=== PATIENT | female | born 1965 ===

== ENCOUNTER 2018-02-20 13:41 | Emergency (ER) | payer OTHER ==
--- NOTE | 2018-02-20 14:51 | C.PDOC ---
History Of Present Illness 52 year old female with bipolar disorder presented to the ED today for "feeling cold for one year." The patient states that she has had constant chills and coughing for the past year as well. Denies chest pain, SOB, hemoptysis, abdominal pain, back pain, travel, rash, weakness, dizziness. Time Seen by Provider: 02/20/18 13:48 Chief Complaint (Nursing): Flu-like Symptoms History Per: Patient History/Exam Limitations: no limitations Onset/Duration Of Symptoms: Persistent Current Symptoms Are (Timing): Still Present Severity: Mild Past Medical History Vital Signs: Last Vital Signs Temp 97.6 F 02/20/18 16:20 Pulse 80 02/20/18 16:20 Resp 18 02/20/18 16:20 BP 113/75 02/20/18 16:20 Pulse Ox 99 02/20/18 17:02 - Medical History PMH: Anemia, Anxiety, Back Problems, Depression, Gastritis, Hypercholesterolemia , Migraine, Chronic Pain Surgical History: Cholecystectomy Family History: States: Unknown Family Hx - Social History Hx Tobacco Use: No Hx Alcohol Use: No Hx Substance Use: No - Immunization History Hx Tetanus Toxoid Vaccination: No Hx Influenza Vaccination: No Hx Pneumococcal Vaccination: No Review Of Systems Except As Marked, All Systems Reviewed And Found Negative. Constitutional: Positive for: Chills Respiratory: Positive for: Cough Physical Exam - Physical Exam Appears: Non-toxic, No Acute Distress Skin: Normal Color, Warm, No Rash Head: Atraumatic, Normacephalic Eye(s): bilateral: Normal Inspection, PERRL, EOMI Oral Mucosa: Moist Throat: No Erythema, No Exudate Neck: Normal ROM, Supple Chest: Symmetrical, No Tenderness Cardiovascular: Rhythm Regular, No Friction Rub, No Murmur Respiratory: Normal Breath Sounds, No Rales, No Rhonchi, No Wheezing Gastrointestinal/Abdominal: Normal Exam, Soft, No Tenderness Back: Normal Inspection, No CVA Tenderness Extremity: Normal ROM, No Swelling Neurological/Psych: Oriented x3, Normal Speech, Normal Motor Gait: Steady ED Course And Treatment - Laboratory Results Result Diagrams: 02/20/18 15:04 02/20/18 15:04 O2 Sat by Pulse Oximetry: 99 (RA) Pulse Ox Interpretation: Normal Medical Decision Making Medical Decision Making: Plan: --CMP --TSH --CBC --HCG --Urinalysis On re-exam, the patient reports improvement of symptoms. Patient is sleeping the bed comfortably. Lungs are CTA, HEart is RRR. abdomen is soft, non-tender and the patient is tolerating Po well. Ambulatory in the ED with steady gait. Follow up with the medical doctor within 1-2 days. Return if worsened. Disposition - Disposition Referrals: Manas Wilhelm MD [Family Provider] - Disposition: HOME/ ROUTINE Disposition Time: 16:58 Condition: GOOD Additional Instructions: Follow up with the medical doctor within 1-2 days. Return if worsened. 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 - Scribe Statement The provider has reviewed the documentation as recorded by the Scribe Yue Mascorro All medical record entries made by the Scribe were at my direction and personally dictated by me. I have reviewed the chart and agree that the record accurately reflects my personal performance of the history, physical exam, medical decision making, and the department course for this patient. I have also personally directed, reviewed, and agree with the discharge instructions and disposition.
[2018-02-20 15:07] LABS: BASO % 0.5 % (0.0-2.0); EOS % 0.5 % (0.0-4.0); HEMOGLOBIN 14.3 g/dL (11.0-16.0); LYMPH # 1.8 K/uL (1.0-4.3); LYMPH % 19.3 % (20.0-40.0); MEAN CELL VOLUME 89.1 fL (81.0-99.0); MEAN CORPUSCULAR HEMOGLOBIN 30.7 pg (27.0-31.0); MEAN CORPUSCULAR HGB CONC 34.4 g/dL (33.0-37.0); MEAN PLATELET VOLUME 8.8 fL (7.2-11.7); MONO # 0.4 K/uL (0.0-0.8); MONO % 4.7 % (0.0-10.0); NEUT # 6.9 K/uL (1.8-7.0); RBC 4.66 Mil/uL (3.80-5.20); RED CELL DISTRIBUTION WIDTH 13.5 % (11.5-14.5); WHITE BLOOD COUNT 9.3 K/uL (4.8-10.8)
[2018-02-20 15:11] LABS: HCG,QUALITATIVE URINE NEGATIVE (NEGATIVE)
[2018-02-20 15:12] LABS: SQUAMOUS EPITHIAL 2 /hpf (0-5); URINE BILIRUBIN NEGATIVE (NEGATIVE); URINE BLOOD NEGATIVE (NEGATIVE); URINE CLARITY Clear (Clear); URINE COLOR Colorless (YELLOW); URINE GLUCOSE (UA) NORMAL (Normal); URINE LEUKOCYTE ESTERASE TRACE Leu/uL (Negative); URINE PROTEIN NEGATIVE (NEGATIVE); URINE UROBILINOGEN NORMAL mg/dL (0.2-1.0)
[2018-02-20 15:20] LABS: ALB/GLOB RATIO 1.1 (1.0-2.1); ALBUMIN 4.3 g/dL (3.5-5.0); ALT/SGPT 66 U/L (9-52); AST/SGOT 35 U/L (14-36); BLOOD UREA NITROGEN 11 mg/dL (7-17); CALCIUM 9.4 mg/dl (8.6-10.4); GFR AFRICAN-AMERICAN > 60; GFR NON-AFRICAN AMERICAN > 60
[2018-02-20 16:20] VITALS: BP 113/75; PULSE 80; RESP 18; TEMP 97.6
[2018-02-20 16:59] VITALS: O2SAT 99
== END 2018-02-20 17:16 | disposition home or self-care (01) ==
LOC: C.ER 13:41
DX: T69.8XXA Other specified effects of reduced temperature, initial encounter (principal)

== ENCOUNTER 2018-09-24 11:16 | Emergency (ER) | payer MEDICAID, OTHER ==
[2018-09-24 11:38] VITALS: BMI 22.6
--- NOTE | 2018-09-24 11:52 | C.PDOC ---
History Of Present Illness 53 years old female presents to ED for complaints of feeling cold, headache and upper abdominal pain that began 3 days ago. Denies fever, chills, or any other physical complaints. Time Seen by Provider: 09/24/18 11:20 Chief Complaint (Nursing): Medical Clearance History Per: Patient History/Exam Limitations: no limitations Onset/Duration Of Symptoms: Hrs Current Symptoms Are (Timing): Still Present Recent travel outside of the [place]: No Past Medical History Reviewed: Historical Data, Nursing Documentation, Vital Signs Vital Signs: Last Vital Signs Temp 98.7 F 09/24/18 11:21 Pulse 100 H 09/24/18 11:21 Resp 18 09/24/18 11:21 BP 122/85 09/24/18 11:21 Pulse Ox 98 09/24/18 11:21 - Medical History PMH: Anemia, Anxiety, Back Problems, Depression, Gastritis, Hypercholesterolemia, Migraine, Chronic Pain Surgical History: Cholecystectomy Family History: States: Unknown Family Hx - Social History Hx Tobacco Use: No Hx Alcohol Use: No Hx Substance Use: No - Immunization History Hx Tetanus Toxoid Vaccination: No Hx Influenza Vaccination: No Hx Pneumococcal Vaccination: No Review Of Systems Constitutional: Positive for: Other (Cold symptoms ). Negative for: Fever, Chills Gastrointestinal: Positive for: Abdominal Pain (Upper Abdomen ). Negative for: Nausea, Vomiting, Diarrhea Skin: Negative for: Rash Neurological: Positive for: Headache. Negative for: Weakness, Numbness, Dizziness Physical Exam - Physical Exam Appears: Well, Non-toxic, No Acute Distress Skin: Normal Color, Warm, Dry, No Rash Head: Atraumatic, Normacephalic Eye(s): bilateral: Normal Inspection, PERRL, EOMI Ear(s): Bilateral: Normal Nose: Normal Oral Mucosa: Moist Tongue: Normal Appearing Lips: Normal Appearing Gingiva: Normal Appearing Throat: Normal, No Erythema, No Exudate, No Drooling Neck: Normal ROM, Supple Chest: Symmetrical, No Tenderness Cardiovascular: Rhythm Regular, No Murmur Respiratory: Normal Breath Sounds, No Rales, No Rhonchi, No Wheezing Gastrointestinal/Abdominal: Bowel Sounds (Active ), Soft, Tenderness (Epigastric ), No Distention, No Guarding, No Rebound Extremity: Normal ROM Extremity: Bilateral: Atraumatic, Normal Color And Temperature, Normal ROM Pulses: Left Radial: Normal, Right Radial: Normal Neurological/Psych: Oriented x3, Normal Speech Gait: Steady ED Course And Treatment - Laboratory Results Result Diagrams: 09/24/18 12:29 09/24/18 12:29 Lab Interpretation: Normal ECG: Interpreted By Me ECG Rhythm: Sinus Rhythm Rate From EC O2 Sat by Pulse Oximetry: 98 (RA) Pulse Ox Interpretation: Normal - Radiology CXR: Interpreted by Me CXR Interpretation: Yes: No Acute Disease - Other Rad CXR X-Ray: Viewed By Me, Read By Radiologist Interpretation: Date of service: 09/24/2018. HISTORY: SOB. COMPARISON: Chest radiographs 04/16/2016. TECHNIQUE: Chest PA and lateral. FINDINGS: LUNGS: No active pulmonary disease. PLEURA: No significant pleural effusion identified. No pneumothorax apparent. CARDIOVASCULAR: No aortic atherosclerotic calcification present. Normal cardiac size. No pulmonary vascular congestion. OSSEOUS STRUCTURES: No significant abnormalities. VISUALIZED UPPER ABDOMEN: Normal. OTHER FINDINGS: None. IMPRESSION: No interval acute cardiopulmonary disease appreciated. Progress Note: Treated with IVF NSS and pepcid. On re-evaluation abdomen soft non-tender in no distress. Discharged in stable condition Medical Decision Making Medical Decision Making: Plan: * IV Fluids * Pepcid * EKG * Blood work * CXR * Urinalysis Disposition Counseled Patient/Family Regarding: Studies Performed, Diagnosis, Need For Followup - Disposition Referrals: Manas Wilhelm MD [Staff Provider] - Disposition: HOME/ ROUTINE Disposition Time: 13:00 Condition: STABLE Additional Instructions: Follow up with your PMD for further evaluation Return to ED if any increase symptoms Instructions: Generalized Weakness, Weakness (ED) Forms: [employer] (Saudi Arabian) Print Language: THAI - POA Present On Arrival: None - Clinical Impression Clinical Impression: Weakness - 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 - Scribe Statement The provider has reviewed the documentation as recorded by the Heather Barton All medical record entries made by the Jiaibtami were at my direction and personally dictated by me. I have reviewed the chart and agree that the record accurately reflects my personal performance of the history, physical exam, medical decision making, and the department course for this patient. I have also personally directed, reviewed, and agree with the discharge instructions and disposition.
[2018-09-24] MEDS ORDERED: Sodium Chloride 0.9% 1,000 ML IV ONE (12:15)
[2018-09-24] MEDS ORDERED: Sodium Chloride 0.9% 1,000 ML ONE (12:23)
[2018-09-24 12:32] LABS: BASO # 0.1 K/uL (0.0-0.2); BASO % 0.7 % (0.0-2.0); EOS % 0.4 % (0.0-4.0); HEMOGLOBIN 14.5 g/dL (11.0-16.0); LYMPH # 1.8 K/uL (1.0-4.3); LYMPH % 24.3 % (20.0-40.0); MEAN CELL VOLUME 89.6 fL (81.0-99.0); MEAN CORPUSCULAR HEMOGLOBIN 30.4 pg (27.0-31.0); MEAN PLATELET VOLUME 8.7 fL (7.2-11.7); MONO # 0.4 K/uL (0.0-0.8); MONO % 5.7 % (0.0-10.0); NEUT % 68.9 % (50.0-75.0); NRBC % 0.1 % (0.0-2.0); RBC 4.75 Mil/uL (3.80-5.20); RED CELL DISTRIBUTION WIDTH 13.2 % (11.5-14.5); WHITE BLOOD COUNT 7.3 K/uL (4.8-10.8)
[2018-09-24 12:45] LABS: ALB/GLOB RATIO 1.3 (1.0-2.1); ALBUMIN 4.7 g/dL (3.5-5.0); ALT/SGPT 43 U/L (9-52); AST/SGOT 24 U/L (14-36); BLOOD UREA NITROGEN 11 mg/dL (7-17); CALCIUM 9.8 mg/dl (8.6-10.4); GFR NON-AFRICAN AMERICAN > 60; LIPASE 46 U/L (23-300)
[2018-09-24 13:58] LABS: SQUAMOUS EPITHIAL 3 /hpf (0-5); URINE BACTERIA RARE (<OCC); URINE BILIRUBIN NEGATIVE (NEGATIVE); URINE BLOOD NEGATIVE (NEGATIVE); URINE CLARITY Clear (Clear); URINE COLOR Straw (YELLOW); URINE GLUCOSE (UA) NORMAL (Normal); URINE LEUKOCYTE ESTERASE TRACE Leu/uL (Negative); URINE PROTEIN NEGATIVE (NEGATIVE); URINE UROBILINOGEN NORMAL mg/dL (0.2-1.0)
[2018-09-24 14:43] VITALS: BP 120/78; PULSE 82; RESP 16; TEMP 98.5
--- NOTE | 2018-09-24 15:32 | RAD ---
Date of service: 09/24/2018 HISTORY: SOB COMPARISON: Chest radiographs 04/16/2016. TECHNIQUE: Chest PA and lateral FINDINGS: LUNGS: No active pulmonary disease. PLEURA: No significant pleural effusion identified. No pneumothorax apparent. CARDIOVASCULAR: No aortic atherosclerotic calcification present. Normal cardiac size. No pulmonary vascular congestion. OSSEOUS STRUCTURES: No significant abnormalities. VISUALIZED UPPER ABDOMEN: Normal. OTHER FINDINGS: None. IMPRESSION: No interval acute cardiopulmonary disease appreciated.
[2018-09-24 16:23] VITALS: O2SAT 98
--- NOTE | 2018-09-27 15:22 | CARD ---
APPROVED REPORT Date of service: 09/24/2018 EKG Measurement Heart [id number] <Conclusion> Normal sinus rhythm Normal ECG
== END 2018-09-24 14:42 | disposition home or self-care (01) ==
LOC: C.ER 11:16
DX: R53.1 Weakness (principal); D64.9 Anemia, unspecified; E78.00 Pure hypercholesterolemia, unspecified

== ENCOUNTER 2018-11-05 15:34 | Emergency (ER) | payer MEDICAID ==
[2018-11-05 15:35] VITALS: BMI 22.6
[2018-11-05] MEDS ORDERED: Sodium Chloride 0.9% 1,000 ML IV ONE (16:26)
--- NOTE | 2018-11-05 16:26 | C.PDOC ---
History Of Present Illness 53 y/o female pt with hx of depression presents to the ER c/o abdominal pain for a few weeks. Associated sx includes nausea, diarrhea and chills. Pt denies fever. <BriiMiguel - Last Filed: 11/05/18 16:28> History Per: Patient History/Exam Limitations: no limitations Onset/Duration Of Symptoms: Days Current Symptoms Are (Timing): Still Present Location Of Pain/Discomfort: Diffuse <Miguel Teresa - Last Filed: 11/05/18 16:28> <Adriana Morales - Last Filed: 11/05/18 20:29> Time Seen by Provider: 11/05/18 16:04 Chief Complaint (Nursing): Abdominal Pain Past Medical History Reviewed: Historical Data, Nursing Documentation, Vital Signs Vital Signs: Last Vital Signs Temp 98.1 F 11/05/18 15:40 Pulse 83 11/05/18 15:40 Resp 20 11/05/18 15:40 BP 118/80 11/05/18 15:40 Pulse Ox 95 11/05/18 15:40 - Medical History PMH: Anemia, Anxiety, Back Problems, Depression, Gastritis, Hypercholesterolemia, Migraine, Chronic Pain Surgical History: Cholecystectomy Family History: States: Unknown Family Hx - Social History Hx Tobacco Use: No Hx Alcohol Use: No Hx Substance Use: No - Immunization History Hx Tetanus Toxoid Vaccination: No Hx Influenza Vaccination: No Hx Pneumococcal Vaccination: No <BriiMiguel - Last Filed: 11/05/18 16:28> Vital Signs: Last Vital Signs Temp 97.9 F 11/05/18 18:48 Pulse 90 11/05/18 18:48 Resp 18 11/05/18 18:48 BP 113/79 11/05/18 18:48 Pulse Ox 100 11/05/18 18:48 <Adriana Morales - Last Filed: 11/05/18 20:29> Review Of Systems Except As Marked, All Systems Reviewed And Found Negative. Constitutional: Positive for: Chills. Negative for: Fever Gastrointestinal: Positive for: Nausea, Abdominal Pain, Diarrhea <Miguel Teresa - Last Filed: 11/05/18 16:28> Physical Exam - Physical Exam Appears: Non-toxic, No Acute Distress Skin: Warm, Dry Head: Normacephalic Eye(s): bilateral: Normal Inspection, EOMI Oral Mucosa: Moist Chest: Symmetrical Cardiovascular: Rhythm Regular Respiratory: Normal Breath Sounds Gastrointestinal/Abdominal: Soft, Tenderness (mild) Extremity: Normal ROM (x4) Neurological/Psych: Oriented x3, Normal Speech <Miguel Teresa - Last Filed: 11/05/18 16:28> ED Course And Treatment O2 Sat by Pulse Oximetry: 95 (RA) Pulse Ox Interpretation: Normal <BriiMiguel edmond - Last Filed: 11/05/18 16:28> - Laboratory Results Result Diagrams: 11/05/18 16:55 11/05/18 16:55 - CT Scan/US CT Abd/Pel Other Rad Studies (CT/US): Read By Radiologist, Radiology Report Reviewed CT/US Interpretation: FINDINGS: LUNG BASES: The lung bases appear clear. No pleural effusions are seen. LIVER: Unremarkable. GALLBLADDER AND BILE DUCTS: The gallbladder has been surgically removed. PANCREAS: Unremarkable. SPLEEN: Unremarkable. ADRENAL GLANDS: Unremarkable. KIDNEYS, URETERS, AND BLADDER: The kidneys appear within normal limits. There is no hydronephrosis or hydroureter. No urinary calculi are seen. STOMACH AND BOWEL: Unremarkable appearance of the stomach and bowel. No evidence of bowel obstruction. No evidence suggesting enteritis or colitis. APPENDIX: No evidence of acute appendicitis on CT examination. PERITONEUM: No free fluid. No free air. LYMPH NODES: No lymphadenopathy is evident. VASCULATURE: No evidence of abdominal aortic aneurysm. BONES: No aggressive appearing osseous lesion. No acute osseous pathology evident. IMPRESSION: Status post cholecystectomy. No suspicious mass or lymphadenopathy or free fluid collection within the abdomen and pelvis. <Adriana Morales - Last Filed: 11/05/18 20:29> Medical Decision Making Medical Decision Making: Impression: abdominal pain Plans: -- CT scan abdomen and plevis -- chem labs -- blood work -- IV fluids -- UA <Brii,Miguel - Last Filed: 11/05/18 16:28> Medical Decision Makin- CT results reviewed and discussed with patient. Stable to discharge home. Rx written for cipro for UTI and ibuprofen for pain. Patient advised to follow up with PMD or return to the ED for any new or worsening symptoms. <Adriana Morales - Last Filed: 11/05/18 20:29> Disposition <Miguel Teresa - Last Filed: 11/05/18 16:28> - Disposition Disposition Time: 20:25 <Adriana Morales - Last Filed: 11/05/18 20:29> - Disposition Disposition: HOME/ ROUTINE Condition: STABLE Additional Instructions: MARIO SMITH, thank you for letting us take care of you today. Your provider was Adriana Morales MD and you were treated for ABD VANNA. The emergency medical care you received today was directed at your acute symptoms. If you were prescribed any medication, please fill it and take as directed. It may take se veral days for your symptoms to resolve. Return to the Emergency Department if your symptoms worsen, do not improve, or if you have any other problems. Please contact your doctor or call one of the physicians/clinics you have been referred to that are listed on the Patient Visit Information form that is included in your discharge packet. Bring any paperwork you were given at discharge with you along with any medications you are taking to your follow up visit. Our treatment cannot replace ongoing medical care by a primary care provider outside of the emergency department. Thank you for allowing the [facility] team to be part of your care today. If you had an X-Ray or CT scan: A Radiologist will review the ED reading if any change in treatment is needed we will contact you. If you had a blood, urine, or wound culture: It will take several days for the results, if any change in treatment is needed we will contact you. If you had an STI test: It will take 48 hours for the results. Please call after 1 week if you have not heard back. Prescriptions: Ciprofloxacin HCl [Cipro] 250 mg PO Q12 5 Days #10 tablet Ibuprofen [Motrin] 600 mg PO Q6 #20 tab Instructions: Urinary Tract Infection, Adult (DC) Forms: [employer] (Spanish) Print Language: BENGALI - Clinical Impression Clinical Impression: Abdominal pain, Urinary tract infection - Scribe Statement The provider has reviewed the documentation as recorded by the Jiaibtami Wiggins Do Provider Attestation: All medical record entries made by the Scribe were at my direction and personally dictated by me. I have reviewed the chart and agree that the record accurately reflects my personal performance of the history, physical exam, medical decision making, and the department course for this patient. I have also personally directed, reviewed, and agree with the discharge instructions and disposition. <Miguel Teresa - Last Filed: 11/05/18 16:28>
[2018-11-05] MEDS ORDERED: Sodium Chloride 0.9% 1,000 ML ONE (16:43)
[2018-11-05] MEDS ORDERED: Iohexol 240 (50 ml) ONE (16:43)
[2018-11-05 17:01] LABS: BASO % 0.7 % (0.0-2.0); EOS % 0.5 % (0.0-4.0); HEMOGLOBIN 15.4 g/dL (11.0-16.0); LYMPH # 2.3 K/uL (1.0-4.3); LYMPH % 32.2 % (20.0-40.0); MEAN CELL VOLUME 91.5 fL (81.0-99.0); MEAN CORPUSCULAR HEMOGLOBIN 30.2 pg (27.0-31.0); MEAN CORPUSCULAR HGB CONC 33.1 g/dL (33.0-37.0); MEAN PLATELET VOLUME 9.2 fL (7.2-11.7); MONO # 0.5 K/uL (0.0-0.8); MONO % 7.3 % (0.0-10.0); NEUT # 4.3 K/uL (1.8-7.0); NEUT % 59.3 % (50.0-75.0); RBC 5.1 Mil/uL (3.80-5.20); RED CELL DISTRIBUTION WIDTH 13.2 % (11.5-14.5); WHITE BLOOD COUNT 7.3 K/uL (4.8-10.8)
[2018-11-05 17:12] LABS: SQUAMOUS EPITHIAL 50 /hpf (0-5); URINE BACTERIA OCC (<OCC); URINE BILIRUBIN NEGATIVE (NEGATIVE); URINE BLOOD NEGATIVE (NEGATIVE); URINE CLARITY Hazy (Clear); URINE COLOR Amber (YELLOW); URINE GLUCOSE (UA) NORMAL (Normal); URINE LEUKOCYTE ESTERASE 2+ Leu/uL (Negative); URINE PROTEIN 1+ mg/dL (NEGATIVE); URINE UROBILINOGEN NORMAL mg/dL (0.2-1.0)
[2018-11-05 17:14] LABS: ALB/GLOB RATIO 1.4 (1.0-2.1); ALBUMIN 4.7 g/dL (3.5-5.0); ALT/SGPT 62 U/L (9-52); AST/SGOT 40 U/L (14-36); BLOOD UREA NITROGEN 11 mg/dL (7-17); CALCIUM 9.8 mg/dl (8.6-10.4); GFR NON-AFRICAN AMERICAN > 60; LIPASE 50 U/L (23-300)
[2018-11-05] MEDS ORDERED: Ciprofloxacin 400mg/200ml D5W 400 MG/200 ML BAG IVPB ONE ×2 (17:15→17:44)
[2018-11-05 18:48] VITALS: RESP 18
[2018-11-05] MEDS ORDERED: Iodixanol 320 MG/ML 100 ML BOTTLE IV ONE (19:35)
[2018-11-05 20:33] VITALS: BP 135/89; PULSE 102; TEMP 98.1; O2SAT 97
--- NOTE | 2018-11-06 10:59 | CT ---
Date of service: 11/05/2018 PROCEDURE: CT Abdomen and Pelvis with contrast HISTORY: abd pain COMPARISON: Comparison is made with the previous ultrasound of abdomen dated 01/20/2018 TECHNIQUE: Contrast dose: 100 mL of Visipaque 320 intravenously. Axial and reformatted coronal and sagittal CT images of the abdomen and pelvis were obtained after IV and oral contrast administration. Radiation dose: Total exam DLP = 249.69 mGy-cm. This CT exam was performed using one or more of the following dose reduction techniques: Automated exposure control, adjustment of the mA and/or kV according to patient size, and/or use of iterative reconstruction technique. FINDINGS: LOWER THORAX: No evidence of acute pathology at the lung bases. LIVER: Unremarkable. No gross lesion or ductal dilatation. GALLBLADDER AND BILE DUCTS: Status post cholecystectomy. The common bile duct is slightly prominent in size likely due to prior cholecystectomy. PANCREAS: Unremarkable. No gross lesion or ductal dilatation. SPLEEN: Unremarkable. ADRENALS: Unremarkable. No mass. KIDNEYS AND URETERS: Unremarkable. No hydronephrosis. No solid mass. VASCULATURE: Unremarkable. No aortic aneurysm. No aortic atherosclerotic calcification or mural plaque present. BOWEL: Mild diffuse gastric wall thickening noted more prominent distally may be due to mild gastritis. No evidence of high-grade bowel obstruction. APPENDIX: Normal appendix. PERITONEUM: Unremarkable. No free fluid. No free air. LYMPH NODES: Unremarkable. No enlarged lymph nodes. BLADDER: Unremarkable. REPRODUCTIVE: The uterus is prominent in size. There is fibroid noted at the right uterine wall. BONES: No acute fracture. OTHER FINDINGS: None. IMPRESSION: Status post cholecystectomy. Mild gastric wall thickening suspicious for gastritis. No evidence of acute pathology in the abdomen and pelvis. Preliminary report was submitted by [facility] contains concordant findings.
== END 2018-11-05 20:35 | disposition home or self-care (01) ==
LOC: C.ER 15:34
DX: N39.0 Urinary tract infection, site not specified (principal); R10.9 Unspecified abdominal pain; E78.00 Pure hypercholesterolemia, unspecified; Z90.49 Acquired absence of other specified parts of digestive tract
CPT/HCPCS: 74177; 80053; 81001; 83690; 85025; 87086; 96361; 96365; 99285; J0744; J7030; Q9967

== ENCOUNTER 2018-11-11 12:14 | Emergency (ER) | payer MEDICAID ==
[2018-11-11 12:15] VITALS: BMI 22.6
[2018-11-11 13:00] VITALS: O2SAT 96
--- NOTE | 2018-11-11 13:06 | C.PDOC ---
History Of Present Illness 53 y/o female presents to the ER complaining of abdominal pain which has been present for the past 8 days. On further questioning, patient states she has had this pain for months and it has become more severe in the past month. Patient states that she has nausea. Patient is also complaining of subjective fever and chills. She was evaluated for the same complaints in [facility] 6 days ago. At the time, she had CT which showed gastritis and she was discharged on abx. She had a urine culture which showed no growth. Denies having vomiting,dysuria, hematuria, vaginal bleeding, and rectal bleeding. Patient states saw primary care 2 days ago. 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 Time Seen by Provider: 11/11/18 12:26 Chief Complaint (Nursing): Abdominal Pain History Per: Patient History/Exam Limitations: no limitations Onset/Duration Of Symptoms: Days Current Symptoms Are (Timing): Still Present Severity: Moderate Past Medical History Reviewed: Historical Data, Nursing Documentation, Vital Signs Vital Signs: Last Vital Signs Temp 98.3 F 11/11/18 12:25 Pulse 105 H 11/11/18 13:00 Resp 19 11/11/18 13:00 BP 120/80 11/11/18 13:00 Pulse Ox 96 11/11/18 13:00 - Medical History PMH: Anemia, Anxiety, Back Problems, Depression, Gastritis, Hypercholesterolemia, Migraine, Chronic Pain Surgical History: Cholecystectomy Family History: States: No Known Family Hx - Social History Hx Tobacco Use: No Hx Alcohol Use: No Hx Substance Use: No - Immunization History Hx Tetanus Toxoid Vaccination: No Hx Influenza Vaccination: No Hx Pneumococcal Vaccination: No Review Of Systems Except As Marked, All Systems Reviewed And Found Negative. Constitutional: Positive for: Fever, Chills Gastrointestinal: Positive for: Nausea, Abdominal Pain. Negative for: Vomiting Genitourinary: Negative for: Dysuria, Hematuria, Vaginal Discharge, Vaginal Bleeding Physical Exam - Physical Exam Additional Physical Exam Comments: Constitutional: No acute distress. Head: Normocephalic. Atraumatic. Eyes: PERRL. ENT: Moist mucous membranes. Neck: Supple. Cardiovascular: Tachycardic.Radial pulse 2+ bilaterally. Chest: No tenderness. Respiratory: Clear to auscultation bilaterally. GI: Soft.Epigastric Tenderness. Nondistended.No Guarding. No Rebound. Back: No CVA tenderness. Musculoskeletal: No tenderness or swelling of extremities.z Skin: No rash. Neurologic: Alert, no focal deficit. ED Course And Treatment O2 Sat by Pulse Oximetry: 96 (RA) Pulse Ox Interpretation: Normal Medical Decision Making Medical Decision Making: Discussed with patient at length that for her chronic pain, she requires further evaluation with primary care in office setting but given negative work up for these symptoms in ED 6 days ago and no change in symptoms since then, no indication for further evaluation currently. I encouraged patient to return to ED for worsening pain, fever, vomiting, or any other concern for emergent disease. Otherwise, I stressed the importance of outpatient follow up given that patient has had this pain for an extensive period of time but has not been given a diagnosis. Disposition - Disposition Referrals: Munir Edmondson MD [Staff Provider] - Disposition: HOME/ ROUTINE Disposition Time: 14:14 Condition: STABLE Prescriptions: Ibuprofen [Motrin] 1 tab PO Q6 #30 tab Ondansetron ODT [Zofran ODT] 4 mg PO Q8 #12 odt Instructions: Acute Abdomen (Belly Pain), Adult (DC) Forms: [employer] (Azeri) - Clinical Impression Clinical Impression: Abdominal pain - Scribe Statement The provider has reviewed the documentation as recorded by the Jiaibe Vidal Gerber Provider Attestation: All medical record entries made by the Jiaibe were at my direction and personally dictated by me. I have reviewed the chart and agree that the record accurately reflects my personal performance of the history, physical exam, medical decision making, and the department course for this patient. I have also personally directed, reviewed, and agree with the discharge instructions and disposition.
[2018-11-11 14:34] VITALS: BP 126/82; PULSE 94; RESP 16; TEMP 98.5
== END 2018-11-11 14:42 | disposition home or self-care (01) ==
LOC: C.ER 12:14
DX: R10.13 Epigastric pain (principal)

== ENCOUNTER 2019-01-25 07:04 | Day surgery (SDC) | payer MEDICAID ==
[2019-01-25] MEDS ORDERED: Lactated Ringer's 500 ML IV SCH (07:45)
[2019-01-25] MEDS ORDERED: Lactated Ringer's 1,000 ML IV ONE (08:48)
[2019-01-25] MEDS ORDERED: Propofol 10 mg/ml Inj (20 ML) ONE (08:49)
[2019-01-25 10:09] LABS: HEMOGLOBIN 14.4 g/dL (11.0-16.0); MEAN CELL VOLUME 92.8 fL (81.0-99.0); MEAN CORPUSCULAR HEMOGLOBIN 30.8 pg (27.0-31.0); MEAN CORPUSCULAR HGB CONC 33.2 g/dL (33.0-37.0); MEAN PLATELET VOLUME 9.5 fL (7.2-11.7); RBC 4.69 Mil/uL (3.80-5.20); RED CELL DISTRIBUTION WIDTH 13.7 % (11.5-14.5); WHITE BLOOD COUNT 9.6 K/uL (4.8-10.8)
[2019-01-25 10:27] VITALS: TEMP 98; O2SAT 99
[2019-01-25 13:12] VITALS: BP 112/80; PULSE 95; RESP 13
== END 2019-01-25 11:25 | disposition home or self-care (01) ==
LOC: C.ENDO 07:04
PROVIDERS: ATTEND Internal Medicine Gastroenterology
DX: K29.70 Gastritis, unspecified, without bleeding (principal)
CPT/HCPCS: 36415; 43239; 84703; 85027; 88305; 88342; J2001; J2704; J3010; J7120

== ENCOUNTER 2019-02-08 06:54 | Day surgery (SDC) | payer MEDICAID ==
[2019-02-07 11:12] VITALS: BMI 18.0
[2019-02-08] MEDS ORDERED: Lactated Ringer's 500 ML IV SCH (07:45)
[2019-02-08 07:50] VITALS: O2SAT 100
[2019-02-08] MEDS ORDERED: Lidocaine Hydrochloride 5 ML INJ ONE (08:17)
[2019-02-08] MEDS ORDERED: Propofol 10 mg/ml Inj (20 ML) ONE (08:17)
--- NOTE | 2019-02-08 08:30 | CP.SDSHP ---
Same Day Surgery H & P - History Proposed Procedure: Colonoscopy Pre-Op Diagnosis: Screening - Previous Medical/Surgical History Comments: hyperlipidemia, Depression, gastritis Previous Surgical History: cholecystectomy - Allergies Allergies: Allergies No Known Allergies Allergy (Verified 02/08/19 07:15) - Current Medications Current Medications: reviewed, per reconciliation - Physical Exam General Appearance: anxious Vital Signs: Vital Signs 02/08/19 02/08/19 07:35 07:48 Temperature 98.9 F Pulse Rate 80 80 Respiratory 20 Rate Blood Pressure 120/73 O2 Sat by Pulse 100 Oximetry Mental Status: Alert & Oriented x3 Heart: WNL Lungs: WNL GI: WNL - {Optional Preform as Required} Abdomen: WNL - Impression Impression: screening Pt. Evaluated Today:Candidate for Anesthesia & Procedure: Yes - Date & Time Date: 02/08/19 Time: 08:30 Short Stay Discharge - Short Stay Discharge Admitting Diagnosis/Reason for Visit: ENCOUNTER FOR SCREENING FOR MALIGNANT NEOPLASM OF Disposition: HOME/ ROUTINE
[2019-02-08 09:05] VITALS: TEMP 97.6
[2019-02-08 09:13] VITALS: RESP 18
[2019-02-08 09:55] VITALS: BP 115/63; PULSE 82
== END 2019-02-08 09:52 | disposition home or self-care (01) ==
LOC: C.ENDO 06:54
PROVIDERS: ATTEND Internal Medicine Gastroenterology
DX: Z12.11 Encounter for screening for malignant neoplasm of colon (principal); E78.5 Hyperlipidemia, unspecified; F31.9 Bipolar disorder, unspecified; K29.70 Gastritis, unspecified, without bleeding; K64.0 First degree hemorrhoids
CPT/HCPCS: 45378; 84703; J2704; J7120

== ENCOUNTER 2019-03-11 17:08 | Emergency (ER) | payer MEDICAID ==
[2019-03-11 17:09] VITALS: BMI 18.0
[2019-03-11 17:21] VITALS: RESP 18
[2019-03-11 18:17] LABS: BASO % 0.7 % (0.0-2.0); EOS # 0.1 K/uL (0.0-0.7); HEMOGLOBIN 14.2 g/dL (11.0-16.0); LYMPH # 1.9 K/uL (1.0-4.3); LYMPH % 25.8 % (20.0-40.0); MEAN CELL VOLUME 90.8 fL (81.0-99.0); MEAN CORPUSCULAR HGB CONC 34.1 g/dL (33.0-37.0); MEAN PLATELET VOLUME 8.8 fL (7.2-11.7); MONO # 0.6 K/uL (0.0-0.8); MONO % 8.3 % (0.0-10.0); NEUT # 4.7 K/uL (1.8-7.0); NEUT % 64.2 % (50.0-75.0); NRBC % 0.1 % (0.0-2.0); RBC 4.58 Mil/uL (3.80-5.20); RED CELL DISTRIBUTION WIDTH 12.9 % (11.5-14.5); WHITE BLOOD COUNT 7.3 K/uL (4.8-10.8)
[2019-03-11 18:23] LABS: SQUAMOUS EPITHIAL 22 /hpf (0-5); URINE BACTERIA OCC (<OCC); URINE BILIRUBIN NEGATIVE (NEGATIVE); URINE BLOOD 1+ (NEGATIVE); URINE CLARITY Hazy (Clear); URINE COLOR Yellow (YELLOW); URINE GLUCOSE (UA) NORMAL (Normal); URINE LEUKOCYTE ESTERASE 3+ Leu/uL (Negative); URINE PROTEIN NEGATIVE (NEGATIVE); URINE UROBILINOGEN NORMAL mg/dL (0.2-1.0)
[2019-03-11 18:40] LABS: ALB/GLOB RATIO 1.5 (1.0-2.1); ALBUMIN 4.3 g/dL (3.5-5.0); ALT/SGPT 32 U/L (9-52); AST/SGOT 28 U/L (14-36); BLOOD UREA NITROGEN 9 mg/dL (7-17); CALCIUM 8.8 mg/dl (8.6-10.4); GFR NON-AFRICAN AMERICAN > 60; LIPASE 91 U/L (23-300)
--- NOTE | 2019-03-11 18:40 | C.PDOC ---
History Of Present Illness 53 year old female presents for evaluation of epigastric abdominal pain for 3 months. The pt states my intestines are bouncing around and I can see it. She had a CT scan in this ED on 11/10/18 and an endoscopy in 01/2019 that showed gastritis. Patient denies chest pain, SOB, fever, chills, nausea, vomiting, diarrhea, dysuria/hematuria. Time Seen by Provider: 03/11/19 17:16 Chief Complaint (Nursing): Abdominal Pain History Per: Patient History/Exam Limitations: no limitations Onset/Duration Of Symptoms: Days (x3 months) Current Symptoms Are (Timing): Still Present Location Of Pain/Discomfort: Epigastric Radiation Of Pain To:: None Quality Of Discomfort: "Pain" Associated Symptoms: denies: Fever, Chills, Nausea, Vomiting, Diarrhea Recent travel outside of the [place]: No Past Medical History Reviewed: Historical Data, Nursing Documentation, Vital Signs Vital Signs: Last Vital Signs Temp 98.1 F 03/11/19 17:19 Pulse 100 H 03/11/19 17:19 Resp 18 03/11/19 17:19 BP 105/70 03/11/19 17:19 Pulse Ox 100 03/11/19 17:19 - Medical History PMH: Anemia, Anxiety, Back Problems, Depression, Gastritis, Gall Bladder Disease, Hypercholesterolemia, Migraine, Chronic Pain Surgical History: Cholecystectomy, Endoscopy Family History: States: No Known Family Hx - Social History Hx Tobacco Use: No Hx Alcohol Use: No Hx Substance Use: No - Immunization History Hx Tetanus Toxoid Vaccination: No Hx Influenza Vaccination: No Hx Pneumococcal Vaccination: No Review Of Systems Constitutional: Negative for: Fever, Chills Cardiovascular: Negative for: Chest Pain Respiratory: Negative for: Cough, Shortness of Breath Gastrointestinal: Positive for: Abdominal Pain (epigastric. ). Negative for: Nausea, Vomiting, Diarrhea Skin: Negative for: Rash Neurological: Negative for: Weakness, Numbness, Headache Physical Exam - Physical Exam Appears: Well, Non-toxic, No Acute Distress, Other (thin appearing) Skin: Warm, Dry Head: Normacephalic Eye(s): bilateral: Normal Inspection Oral Mucosa: Moist Neck: Supple Cardiovascular: Rhythm Regular Respiratory: Normal Breath Sounds, No Rales, No Rhonchi, No Wheezing Gastrointestinal/Abdominal: Normal Exam, Bowel Sounds, Soft, No Tenderness Extremity: Bilateral: Atraumatic, Normal Color And Temperature, Normal ROM Neurological/Psych: Oriented x3, Other (bizzare affect. ) ED Course And Treatment - Laboratory Results Result Diagrams: 03/11/19 18:13 03/11/19 18:13 Lab Results: Urine Color Yellow (YELLOW) 03/11/19 18:13 Urine Clarity Hazy (Clear) 03/11/19 18:13 Urine pH 8.0 (5.0-8.0) 03/11/19 18:13 Ur Specific Gantt 1.002 (1.003-1.030) L 03/11/19 18:13 Urine Protein Negative mg/dL (NEGATIVE) 03/11/19 18:13 Urine Glucose (UA) Normal mg/dL (Normal) 03/11/19 18:13 Urine Ketones Negative mg/dL (NEGATIVE) 03/11/19 18:13 Urine Blood 1+ (NEGATIVE) H 03/11/19 18:13 Urine Nitrate Negative (NEGATIVE) 03/11/19 18:13 Urine Bilirubin Negative (NEGATIVE) 03/11/19 18:13 Urine Urobilinogen Normal mg/dL (0.2-1.0) 03/11/19 18:13 Ur Leukocyte Esterase 3+ Mackenzie/uL (Negative) H 03/11/19 18:13 Urine WBC (Auto) 86 /hpf (0-5) H 03/11/19 18:13 Urine RBC (Auto) 7 /hpf (0-3) H 03/11/19 18:13 Ur Squamous Epith Cells 22 /hpf (0-5) H 03/11/19 18:13 Urine Bacteria Occ (<OCC) H 03/11/19 18:13 Urine HCG, Qual Negative (NEGATIVE) 03/11/19 18:14 Urine HCG, Qual Negative (NEGATIVE) 03/11/19 18:14 O2 Sat by Pulse Oximetry: 100 (RA) Pulse Ox Interpretation: Normal Progress Note: Blood work, UA, Upreg ordered and reviewed. Patient given IV Protonix. Reevaluation Time: 19:30 Reassessment Condition: Improved (Patient reassessed, is resting comfortably and states she feels better. Blood work unremarkable. Patient denies dysuria/hematuria. Rxs for bentyl and protonix given. Patient instructed to follow up with GI within 1 week. She uderstands she should return to ED if symptoms worsen.) Disposition Counseled Patient/Family Regarding: Studies Performed, Diagnosis, Need For Followup, Rx Given - Disposition Referrals: Manas Wilhelm MD [Staff Provider] - Berny Razo MD [Staff Provider] - Disposition: HOME/ ROUTINE Disposition Time: 19:30 Condition: STABLE Additional Instructions: JESSA UN SEGUIMIENTO CON ROSE MDICO EN 1-2 AMATO Y CON EL GASTROENTERLOGO DENTRO DE 1 SEMANA UTILICE PANTOPRAZOLE DAILY Y BENTYL SEGN LO NECESARIO VUELVA A LA RADHA DE EMERGENCIA SI JUANA SNTOMAS SE HACEN PEOR FOLLOW UP WITH YOUR DOCTOR IN 1-2 DAYS, AND WITH [employer] COMPENSATION MANAGER WITHIN 1 WEEK USE PANTOPRAZOLE DAILY, AND BENTYL NEEDED RETURN TO EMERGENCY ROOM IF YOUR SYMPTOMS BECOME WORSE Prescriptions: Dicyclomine [Bentyl] 20 mg PO Q6 PRN #15 tab PRN Reason: ABDOMINAL CRAMPING Pantoprazole [Protonix EC Tab] 20 mg PO DAILY #30 ect Instructions: Dyspepsia (DC) Forms: [employer] (Mongolian) Print Language: THAI - Clinical Impression Clinical Impression: Dyspepsia, Gastritis, Intestinal cramps - Scribe Statement The provider has reviewed the documentation as recorded by the Scribe (Nury Baptiste) Provider Attestation: All medical record entries made by the Scribe were at my direction and personally dictated by me. I have reviewed the chart and agree that the record accurately reflects my personal performance of the history, physical exam, medical decision making, and the department course for this patient. I have also personally directed, reviewed, and agree with the discharge instructions and disposition.
[2019-03-11 19:47] VITALS: BP 118/78; PULSE 90; TEMP 99
[2019-03-14 08:39] VITALS: O2SAT 100
== END 2019-03-11 19:48 | disposition home or self-care (01) ==
LOC: C.ER 17:08
DX: K29.70 Gastritis, unspecified, without bleeding (principal); R10.13 Epigastric pain
CPT/HCPCS: 80053; 81001; 83690; 84703; 85025; 96374; 99284; C9113

== ENCOUNTER 2019-03-24 14:12 | Emergency (ER) | payer MEDICAID ==
--- NOTE | 2019-03-24 14:25 | C.PDOC ---
History Of Present Illness 54 yr old F w/ hx of gastritis, Anemia, Anxiety, Depression, p/w abdominal pain. Pt notes abdominal pain that feels like gastritis x3 months. She notes taking myaltana for the pain without much relief. No fever, chills or night sweats. No chest pain or sob. No constipation, diarrhea or dark or bloody stool. Nausea but no vomiting episodes. No SI or HI or depression. She denies any OD or anxiety. No other complaints. Time Seen by Provider: 03/24/19 14:24 Chief Complaint (Nursing): Abdominal Pain Past Medical History - Medical History PMH: Anemia, Anxiety, Back Problems, Depression, Gastritis, Gall Bladder Disease, Hypercholesterolemia, Migraine, Chronic Pain Denies: Chronic Kidney Disease Surgical History: Cholecystectomy, Endoscopy Family History: States: Unknown Family Hx - Social History Hx Tobacco Use: No Hx Alcohol Use: No Hx Substance Use: No - Immunization History Hx Tetanus Toxoid Vaccination: No Hx Influenza Vaccination: No Hx Pneumococcal Vaccination: No Review Of Systems Constitutional: Negative for: Fever, Weakness, Malaise Eyes: Negative for: Pain, Vision Change ENT: Negative for: Ear Pain, Ear Discharge, Nose Pain, Nose Congestion Cardiovascular: Negative for: Chest Pain, Palpitations Respiratory: Negative for: Cough, Shortness of Breath, SOB with Excertion, Pleuritic Pain Gastrointestinal: Positive for: Nausea, Abdominal Pain. Negative for: Vomiting, Diarrhea, Constipation, Melena, Hematochezia, Hematemesis, Rectal Pain Genitourinary: Negative for: Dysuria, Frequency, Incontinence, Hematuria, Vaginal Discharge, Vaginal Bleeding, Pelvic Pain Skin: Negative for: Rash, Lesions Neurological: Negative for: Weakness Psych: Negative for: Anxiety, Depression, Psychosis, Suicidal ideation Physical Exam - Physical Exam Appears: Well, No Acute Distress Skin: Normal Color, Warm, Dry Eye(s): bilateral: Normal Inspection, PERRL, EOMI Nose: Normal Oral Mucosa: Moist Tongue: Normal Appearing Lips: Normal Appearing Teeth: Normal Dentition Gingiva: Normal Appearing Throat: Normal Neck: Normal, Supple, Other (no meningeal signs) Chest: Symmetrical Cardiovascular: Rhythm Regular Respiratory: Normal Breath Sounds Gastrointestinal/Abdominal: Soft, Tenderness, No Organomegaly, No Mass, No Distention, No Guarding Back: Normal Inspection, No CVA Tenderness, No Vertebral Tenderness Extremity: Normal ROM, No Tenderness Extremity: Bilateral: Atraumatic Neurological/Psych: Oriented x3, Normal Speech, Normal Cognition Gait: Steady ED Course And Treatment - Laboratory Results Result Diagrams: 03/24/19 14:51 03/24/19 14:51 Medical Decision Making Medical Decision Makin yr old female w/ hx of gastritis, choley p/w epigastric pain, feels like previous gastritis. Pt has had repeated visits for the same, but no recent CT. Hand scope w/ dx of gastritis by Dr. Burton per pt 2 months prior. No vaginal d/c or rash or dark or bloody stool. Likely gastritis pending imaging and labs. 1535 xray largely unremarkable 1538 +UTI on UA labs otherwise largely unremarkable. pending CT 1556 EKG 93, nsr, no stemi 1716 ct unremarkable pt tolerating clears well abd non-ttp on re-exam clear for d/c home with return indications and f/u, pt agreeable to plan. Disposition - Disposition Referrals: Manas Wilhelm MD [Staff Provider] - Liang Remy MD [Staff Provider] - Miguel Kramer MD [Staff Provider] - [employer] [Outside] [employer] [facility] [Outside] [facility] [Outside] Disposition Time: 17:17 Condition: STABLE Additional Instructions: MARIO CARBAJAL, thank you for letting us take care of you today. Your provider was Ray Benitez and you were treated for SENT BY PMD. The emergency medical care you received today was directed at your acute symptoms. If you were prescribed any medication, please fill it and take as directed. It may take several days for your symptoms to resolve. Return to the Emergency Department if your symptoms worsen, do not improve, or if you have any other problems. Please contact your doctor or call one of the physicians/clinics you have been referred to that are listed on the Patient Visit Information form that is included in your discharge packet. Bring any paperwork you were given at discharge with you along with any medications you are taking to your follow up visit. Our treatment cannot replace ongoing medical care by a primary care provider outside of the emergency department. Thank you for allowing the [facility] team to be part of your care today. If you had an X-Ray or CT scan: A Radiologist will review the ED reading if any change in treatment is needed we will contact you. If you had a blood, urine, or wound culture: It will take several days for the results, if any change in treatment is needed we will contact you. If you had an STI test: It will take 48 hours for the results. Please call after 1 week if you have not heard back. Prescriptions: Famotidine [Pepcid] 20 mg PO Q24H PRN 6 Days #6 tab PRN Reason: Dyspepsia Nitrofurantoin Macrocrystal [Nitrofurantoin] 100 mg PO BID 5 Days #10 capsule Instructions: Urinary Tract Infection, Adult (DC), Blood in the Urine (Hematuria), Adult (DC), Gastritis (DC) Forms: [employer] (Macedonian) Print Language: SYRIAC - Clinical Impression Clinical Impression: UTI (urinary tract infection), Hematuria, Gastritis
[2019-03-24 14:26] VITALS: BMI 18.6
[2019-03-24] MEDS ORDERED: Sodium Chloride 0.9% 1,000 ML IV SCH (14:45)
[2019-03-24] MEDS ORDERED: Sodium Chloride 0.9% 1,000 ML ONE (14:55)
[2019-03-24 15:05] LABS: BASO % 0.4 % (0.0-2.0); EOS % 0.2 % (0.0-4.0); LYMPH % 25.1 % (20.0-40.0); MEAN CELL VOLUME 92.4 fL (81.0-99.0); MEAN CORPUSCULAR HEMOGLOBIN 31.6 pg (27.0-31.0); MEAN CORPUSCULAR HGB CONC 34.2 g/dL (33.0-37.0); MEAN PLATELET VOLUME 9.3 fL (7.2-11.7); MONO # 0.5 K/uL (0.0-0.8); MONO % 6.6 % (0.0-10.0); NEUT # 5.4 K/uL (1.8-7.0); NEUT % 67.7 % (50.0-75.0); NRBC % 0.1 % (0.0-2.0); RBC 4.75 Mil/uL (3.80-5.20)
[2019-03-24 15:24] LABS: ALB/GLOB RATIO 1.4 (1.0-2.1); ALBUMIN 4.9 g/dL (3.5-5.0); ALT/SGPT 35 U/L (9-52); AST/SGOT 39 U/L (14-36); BLOOD UREA NITROGEN 11 mg/dL (7-17); CALCIUM 10.1 mg/dl (8.6-10.4); GFR NON-AFRICAN AMERICAN > 60; LIPASE 54 U/L (23-300)
[2019-03-24 15:32] LABS: SQUAMOUS EPITHIAL < 1 /hpf (0-5); URINE BILIRUBIN NEGATIVE (NEGATIVE); URINE BLOOD NEGATIVE (NEGATIVE); URINE CLARITY Clear (Clear); URINE COLOR Yellow (YELLOW); URINE GLUCOSE (UA) NORMAL (Normal); URINE LEUKOCYTE ESTERASE 1+ Leu/uL (Negative); URINE PROTEIN NEGATIVE (NEGATIVE); URINE UROBILINOGEN NORMAL mg/dL (0.2-1.0)
[2019-03-24] MEDS ORDERED: Iodixanol 320 MG/ML 100 ML BOTTLE IV ONE (15:48)
--- NOTE | 2019-03-24 15:48 | RAD ---
Date of service: 03/24/2019 HISTORY: Chest pain COMPARISON: 09/24/2018. TECHNIQUE: Chest PA and lateral FINDINGS: LINES AND TUBES: None. LUNG AND PLEURA: The lungs are hyperinflated and there is peribronchial thickening with chronic changes in both lungs. No focal consolidation. No pleural effusion or pneumothorax. HEART AND MEDIASTINUM: The heart is not enlarged. No aortic atherosclerotic calcifications present. The hilar and mediastinal contours are within normal limits. SKELETAL STRUCTURES: The bony structures are within normal limits for the patient's age. VISUALIZED UPPER ABDOMEN: Normal. OTHER FINDINGS: None. IMPRESSION: No active pulmonary disease. COPD.
--- NOTE | 2019-03-24 17:16 | CT ---
Date of service: 03/24/2019 PROCEDURE: CT Abdomen and Pelvis with contrast HISTORY: Epigastric abdominal pain. COMPARISON: 01/20/2018 abdominal ultrasound. 11/05/2018 CT abdomen and pelvis. TECHNIQUE: Intravenous contrast dose: 100 cc Visipaque 320. Radiation dose: Total exam DLP = 218.06 mGy-cm. This CT exam was performed using one or more of the following dose reduction techniques: Automated exposure control, adjustment of the mA and/or kV according to patient size, and/or use of iterative reconstruction technique. FINDINGS: LOWER THORAX: Unremarkable. LIVER: Unremarkable. No gross lesion or ductal dilatation. GALLBLADDER AND BILE DUCTS: Status post cholecystectomy. No abnormality is seen in the gallbladder fossa. PANCREAS: Unremarkable. No gross lesion or ductal dilatation. SPLEEN: Unremarkable. ADRENALS: Unremarkable. No mass. KIDNEYS AND URETERS: Unremarkable. No hydronephrosis. No solid mass. VASCULATURE: Unremarkable. No aortic aneurysm. No atherosclerotic calcification or mural plaque present. BOWEL: Unremarkable. No obstruction. No gross mural thickening. APPENDIX: A normal appendix is visualized in it's entirety. PERITONEUM: Unremarkable. No free fluid. No free air. LYMPH NODES: Unremarkable. No enlarged lymph nodes. BLADDER: Unremarkable. REPRODUCTIVE: Unremarkable. BONES: No acute fracture. Thoracolumbar scoliosis without significant degenerative change. OTHER FINDINGS: None. IMPRESSION: No acute or significant findings related to/ accounting for the clinical presentation. Additional benign and/or incidental findings described above. No significant interval change compared to the prior examination(s).
[2019-03-24 17:42] VITALS: BP 123/79; PULSE 97; RESP 15; TEMP 98; O2SAT 99
--- NOTE | 2019-03-27 12:41 | CARD ---
APPROVED REPORT Date of service: 03/24/2019 EKG Measurement Heart [id number] <Conclusion> Normal sinus rhythm Normal ECG
== END 2019-03-24 17:56 | disposition home or self-care (01) ==
LOC: C.ER 14:12
DX: N39.0 Urinary tract infection, site not specified (principal); R31.9 Hematuria, unspecified; K29.70 Gastritis, unspecified, without bleeding; E78.00 Pure hypercholesterolemia, unspecified; D64.9 Anemia, unspecified
CPT/HCPCS: 71046; 74177; 80053; 81001; 81025; 83690; 85025; 96374; 96375; 99285; J2405; J7030; Q9967